=== PATIENT | female | born 1960 | race Caucasian/White ===

== ENCOUNTER → 2016-11-21 | Outpatient (CLI) | payer BC | LOC: COL.RAD 11:53 | DX: R20.0 Anesthesia of skin (principal); R42 Dizziness and giddiness | CPT/HCPCS: A9585 ==

== ENCOUNTER → 2017-11-27 | Outpatient (CLI) | payer BC | LOC: MC.RAD 10:43 | DX: Z12.31 Encounter for screening mammogram for malignant neoplasm of breast (principal) ==

== ENCOUNTER → 2018-11-19 | Outpatient (CLI) | payer BC | LOC: COL.RAD 09:04 | DX: C80.1 Malignant (primary) neoplasm, unspecified (principal); R91.8 Other nonspecific abnormal finding of lung field; N63.20 Unspecified lump in the left breast, unspecified quadrant | CPT/HCPCS: Q9967 ==

== ENCOUNTER 2018-12-18 02:47 | Emergency (ER) | payer BC ==
[~2018-12-18] VITALS: Ht 157.5 cm; Wt 72.7 kg
[2018-12-18 03:37] LABS: COLLECTION METHOD CLEAN CATCH
[2018-12-18 03:46] LABS: BASO % 0.5 % (0.0-2.0); EOS % 0.5 % (0-4.0); GRAN # 4.9 (1.4-6.5); GRAN % 77.7 % (42.2-75.2); HEMATOCRIT 39.8 % (37.0-47.0); HEMOGLOBIN 13.7 g/dl (12.5-16.0); LYMPH # 1.2 (1.2-3.4); LYMPH % 19.1 % (20.0-51.0); MEAN CELL VOLUME 87 fl (80.0-100.0); MEAN CORPUSCULAR HEMOGLOBIN 30 pg (27.0-31.0); MEAN CORPUSCULAR HGB CONC 34 g/dl (33.0-37.0); MEAN PLATELET VOLUME 9.2 fl (7.4-10.4); MONO # 0.1 (0.1-0.6); MONO % 1.9 % (1.7-9.3); PLATELET COUNT 314 K/mm3 (130-400); REDCELL DISTRIBUTION WIDTH-CV 13.7 % (11.5-14.5)
[2018-12-18 03:56] LABS: ALBUMIN 3.6 gm/dL (3.5-5.0); BILIRUBIN,TOTAL 0.3 mg/dL (0.0-1.0); C-REACTIVE PROTEIN 2.9 mg/dL (0.0-0.9); CALCIUM 8.5 mg/dL (8.4-10.2); CREATININE, serum 0.7 (0.52-1.25); POTASSIUM 3.9 mmol/L (3.4-5.0); TOTAL PROTEIN 6.2 gm/dL (6.4-8.2)
[2018-12-18 03:58] LABS: PH 8 (5-8); URINE APPEARANCE Clear; URINE BACTERIA None Seen /hpf; URINE BILIRUBIN Negative (NEGATIVE); URINE BLOOD 1+ (NEGATIVE); URINE COLOR Yellow; URINE GLUCOSE Negative (NEGATIVE); URINE KETONE Negative (NEGATIVE); URINE LEUKOCYTE ESTERASE 1+ (NEGATIVE); URINE NITRATE Negative (NEGATIVE); URINE PROTEIN(semi-quant) 1+ (NEGATIVE)
[2018-12-18] MEDS ORDERED: LEVAQUIN 750MG750 M1 PO (05:13)
[2018-12-18 05:35] VITALS: BP 110/64; PULSE 82; TEMP 99
== END 2018-12-18 05:35 | disposition home or self-care (01) ==
LOC: COL.ER 02:47
PROVIDERS: Emergency Medicine
DX: R50.9 Fever, unspecified (principal); I10 Essential (primary) hypertension; F17.210 Nicotine dependence, cigarettes, uncomplicated; C34.90 Malignant neoplasm of unspecified part of unspecified bronchus or lung; E78.00 Pure hypercholesterolemia, unspecified
CPT/HCPCS: J7030

== ENCOUNTER → 2019-01-26 | Outpatient (CLI) | payer BC ==
[~2019-01-26] MED LIST: LEVAQUIN 750MG750 M1 PO
== END ==
LOC: COL.RAD 11:30
DX: C34.32 Malignant neoplasm of lower lobe, left bronchus or lung (principal)

== ENCOUNTER → 2019-01-27 | Outpatient (CLI) | payer BC | LOC: COL.RAD 07:12 | DX: C34.32 Malignant neoplasm of lower lobe, left bronchus or lung (principal); E27.8 Other specified disorders of adrenal gland; N63.20 Unspecified lump in the left breast, unspecified quadrant; R00.0 Tachycardia, unspecified; Z95.818 Presence of other cardiac implants and grafts | CPT/HCPCS: Q9967 ==

== ENCOUNTER 2019-04-04 12:30 | Inpatient (IN) | payer BC ==
[~2019-04-04] VITALS: Ht 154.9 cm; Wt 62.2 kg
[2019-04-04 13:54] LABS: BASO % 0.3 % (0.0-2.0); EOS % 0.1 % (0-4.0); GRAN # 7.5 (1.4-6.5); GRAN % 78.7 % (42.2-75.2); HEMOGLOBIN 11.6 g/dl (12.5-16.0); LYMPH # 1.2 (1.2-3.4); LYMPH % 12.1 % (20.0-51.0); MEAN CELL VOLUME 86 fl (80.0-100.0); MEAN CORPUSCULAR HEMOGLOBIN 29 pg (27.0-31.0); MEAN CORPUSCULAR HGB CONC 34 g/dl (33.0-37.0); MEAN PLATELET VOLUME 8.7 fl (7.4-10.4); MONO # 0.8 (0.1-0.6); MONO % 8.1 % (1.7-9.3); PLATELET COUNT 439 K/mm3 (130-400); RED BLOOD COUNT 4.03 M/mm3 (4.10-5.30); REDCELL DISTRIBUTION WIDTH-CV 13.9 % (11.5-14.5)
[2019-04-04 13:55] LABS: HEMATOCRIT 34.5 % (37.0-47.0)
[2019-04-04 13:59] LABS: INR 1.3 (0.8-3.0); PROTHROMBIN TIME 15.1 SECONDS (9.7-12.8)
[2019-04-04 14:05] LABS: ALANINE AMINOTRANSFERASE < 6 U/L (9-52); ALBUMIN 3.6 gm/dL (3.5-5.0); ALKALINE PHOSPHATASE 167 U/L (50-136); ANION GAP 14 mmol/L (7-16); AST,SGOT 23 U/L (15-37); BILIRUBIN,TOTAL 0.5 mg/dL (0.0-1.0); BLOOD UREA NITROGEN 8 mg/dL (7-17); CALCIUM 9.6 mg/dL (8.4-10.2); CARBON DIOXIDE 29 mmol/L (22-30); CHLORIDE 92 mmol/L (98-107); CREATININE, serum 0.44 (0.52-1.25); GLUCOSE 105 mg/dL (74-106); LIPASE 77 U/L (23-300); SODIUM 134 mmol/L (137-145)
--- NOTE | 2019-04-04 14:21 | NUR ---
SW met with patient and her to provide information about hospice services to them. Patient has [employer] and would like to know who is in network and what is covered. SW faxed face sheet and [facility], [facility], [facility], and [facility]. Will follow up with patient once information obtained.
[2019-04-04 15:35] LABS: COLLECTION METHOD CLEAN CATCH
[2019-04-04 15:43] LABS: PH 8 (5-8); SQUAMOUS EPITHELIAL 0-2 /hpf; URINE APPEARANCE Clear; URINE BACTERIA None Seen /hpf; URINE BILIRUBIN Negative (NEGATIVE); URINE BLOOD Negative (NEGATIVE); URINE COLOR Yellow; URINE GLUCOSE Negative (NEGATIVE); URINE KETONE 1+ (NEGATIVE); URINE LEUKOCYTE ESTERASE 2+ (NEGATIVE); URINE NITRATE Negative (NEGATIVE); URINE PROTEIN(semi-quant) Negative (NEGATIVE); URINE RBC 0-2 /hpf; URINE UROBILINOGEN Negative (NEGATIVE)
[2019-04-04] MEDS ORDERED: ASPIRIN 81M81 MG/TA2 PO (17:58)
[2019-04-04] MEDS ORDERED: WELLBUTRIN 100100 MG PO (17:59)
[2019-04-04] MEDS ORDERED: HYZAAR 25 MG-101 TAB PO (18:00)
[2019-04-04] MEDS ORDERED: NEXIUM 40MG40 MG PO (18:00)
[2019-04-04] MEDS ORDERED: LEXAPRO20 MG PO (18:00)
[2019-04-04] MEDS ORDERED: CRESTOR 10MG10 MG PO (18:01)
[2019-04-04] MEDS ORDERED: VALIUM 2MG T2 MG/TAB PO (18:01)
[2019-04-04] MEDS ORDERED: FOLIC ACID800 MCG PO (18:02)
[2019-04-04] MEDS ORDERED: B COMPLEX & B121 TAB PO (18:03)
[2019-04-04] MEDS ORDERED: VITAMIN C500 MG PO (18:03)
[2019-04-04] MEDS ORDERED: VITAMIN D31000 IU PO (18:04)
[2019-04-04] MEDS ORDERED: COMPAZINE 110 MG/TAB PO (18:04)
[2019-04-04] MEDS ORDERED: FENTANYL 100MCG TD (18:06)
[2019-04-04] MEDS ORDERED: DILAUDID 4MG TAB4 MG PO (18:07)
[2019-04-04] MEDS ORDERED: NEURONTIN300 MG/CAP PO (18:07)
[2019-04-04] MEDS ORDERED: FENTANYL 25 MCG TD (18:07)
--- NOTE | 2019-04-04 18:30 | NUR ---
PATIENT IN ROOM AT THIS TIME.
--- NOTE | 2019-04-04 19:00 | NUR ---
Report given to RICKY Woo. Patient resting in bed. Call light within reach.
[2019-04-04 22:29] VITALS: BP 144/70; PULSE 110; TEMP 98.7
[2019-04-05] VITALS (7 sets, daily range): BP systolic 101–140; BP diastolic 55–71; PULSE 91–115; TEMP 98.2–99.2
--- NOTE | 2019-04-05 09:30 | NUR ---
Report received from RICKY Woo. Patient voices complaints of pain. Dilaudid syringe empty. Called pharmacy to bring up more. Saline rate decreased to 60 at this time. Patient is eating breakfast at bedside. Denies any other needs at this time. Call light within reach.
--- NOTE | 2019-04-05 09:55 | NUR ---
Initial visit; Patient thanked Teacher Visually Impaired for checking on her and states she is feeling better and appreciates Teacher Visually Impaired keeping her in Teacher Visually Impaired's prayers.
--- NOTE | 2019-04-05 12:38 | NUR ---
PATIENT REQUESTS TO TAKE A SHOWER. WAITING ON TO ASSIST WITH SHOWER. PAUSED FLUIDS AND PLATE FORMER UNTIL SHOWER FINISHED. PROVIDED ROXANOL PO. WILL REHOOK PLATE FORMER AND FLUIDS ONCE SHOWER FINISHED. PATIENT INDEPENDENT IN ROOM.
--- NOTE | 2019-04-05 13:36 | NUR ---
YANE attended clinical rounds to discuss discharge planning. Patient lives at home with her . Patient's PCP is Dr Ward and she obtains prescriptions from [facility] in [place]. Patient reports she has been independent with ADLs until recently and does not currently use any DME or home health. Patient reports she does have a DPOA-HC and Living Will. Patient reports she gave a copy to admissions. Patient was previously seen in the ED by YANE Kearns for hospice placment before admission. Patient reports her , Augustin ([phone]) is visting with [facility] today in [place] about using their hospice services at home when patient is discharged. YANE spoke with Augustin per patient request via phone about this. Augustin confirmed that he is working with hospice to provide hospice care at the time of discharge. YANE contacted and faxed referral to hospice.
--- NOTE | 2019-04-05 14:18 | NUR ---
Portacath was leaking at site around tegaderm. Assessed site and discussed with patient about leaving the site with redness and irritation. Discussed that if she would need a blood draw, they would have to poke her if we deaccessed. Patient decided to go ahead and deaccess the port so the site would not be so irritated. Port was hep locked, flushed, and removed. RT gave patient breathing treatment. Afterwards, patient was in a lot of pain. Administered Roxanol. Patient stated that the Roxanol was beginning to help decrease the pain almost right away. ELECTRONIC DEVICE MONITOR dilaudid vial was changed out and IV NS is infusing at 60 without issue into right AC site.
--- NOTE | 2019-04-05 19:00 | NUR ---
Shift assessment complete. Pt resting in bed, awake, a&o c occasional forgetfullness, cooperative c cares. Pt c/o continued generalized pain jeromy to hips, rated "9/10" at tis time as CLOTH FOLDER MACHINE syrince is empty. CLOTH FOLDER MACHINE has been empty, no more vials in omnicell, pharmacy contacted. Pt denies any other c/o. IV patent. Pt denies further needs. Call light in reach, will monitor.
--- NOTE | 2019-04-05 19:50 | NUR ---
Pt c/o severe generalized pain, rated "10/10". Pt tearful et shaking. Pharmacy contacted multiple times for TRANSFER MACHINE OPERATOR vail et vials fianlly delivered at this time. Attemped to control pain w additional PO medications. Pt denies any other c/o. Call light in reach, will monitor closely.
[2019-04-06 03:06] VITALS: BP 134/50; PULSE 102; TEMP 98.5
[2019-04-06 07:42] VITALS: BP 110/55; PULSE 107; TEMP 98.5
--- NOTE | 2019-04-06 08:01 | NUR ---
Pt assessment complete and charted. Pt sitting on EOB eating breakfast. A&O. Rating pain 8/10. States she is having pain in lower back and legs. "pain is a little worse this morning". Received oral ede PRN per NOV. RAC IV IVF @60 ml/hr no complications, wrapped with cierra wrap. Pt on COOK BOAT pump, room air and independent in room. Denies other needs at this time. Call light within reach.
--- NOTE | 2019-04-06 09:01 | NUR ---
Pt new dose STRUCTURAL STEEL EQUIPMENT ERECTOR dilaudid started. SBP <120, hydrochlorothiazide held per NOV instructions. Pt laying in bed. Et CO2 on. No other needs at this time.
--- NOTE | 2019-04-06 09:47 | NUR ---
Pt GEAR CUTTING MACHINE SET UP OPERATOR dilaudid syringe broken. Wasted 25ml in omnicell. New syringe brought up by pharmacy and started.
--- NOTE | 2019-04-06 10:20 | NUR ---
Follow-up visit; Patient thanks Automotive Service Writer for checking on her and inquiring about her needs. She states at this time she is "doing ok." Automotive Service Writer will continue to look in on her while she is here at [facility].
--- NOTE | 2019-04-06 10:34 | NUR ---
Called [facility] concerning usage of FX ARTIST for pain control at home. Due to high dosage they will not be able to manage the FX ARTIST at home for the patient. Notified Dr. Leigh of situation. coming to hospital and family meeting planned to discuss the next step in care for discharge planning.
[2019-04-06 11:46] VITALS: BP 105/56; PULSE 95; TEMP 98.3
--- NOTE | 2019-04-06 13:15 | NUR ---
New Dilaudid FIELD REPRESENTATIVES DIRECTOR dose started, confirmed w/ RICKY Velazquez. Et CO2 on patient. No complications. Pt rating pain at 4/10 at this time. Pt now on dilaudid PO scheduled as well. Denies other needs at this time. Waiting on hospitalist to have family meeting with .
--- NOTE | 2019-04-06 15:46 | NUR ---
YANE, ARDEN, doctor, and PA met with patient and to discuss patient returning home with hospice services. Dr Leigh voiced concern with patient returning home and her pain not being controlled. Dr Leigh also reported that patient will require 24/7 care from family, friends, or a hired aid in addition to the hospice staff. Patient and understand these concerns. Patient and are agreeable to YANE faxing a referral to the [facility] in the event patient is not able to return home. YANE contacted and faxed patient's information to [facility].
[2019-04-06 16:00] VITALS: BP 128/63; PULSE 109; TEMP 98.3
--- NOTE | 2019-04-06 17:07 | NUR ---
PURCHASE REQUEST EDITOR dilaudid DC'd. Oral pain control regimen started to see how pt tolerates. Pt sitting in chair watching tv. Rates pain 4/10 at this time. Informed pt to let this nurse know if she needed Caitlin PRN.
--- NOTE | 2019-04-06 19:03 | NUR ---
Pt toelrating PO oral pain control at this time. Rating pain at 6/10. Pt states that 6 is tolerable for her. Lowest she has rated pain is 4/10 today. Pt has been A&O, respirations WNL throughout the day. Report given to RICKY Burden.
[2019-04-06 19:11] VITALS: BP 121/56; PULSE 107; TEMP 98.7
--- NOTE | 2019-04-06 20:00 | NUR ---
pt resting in bed A+OX4 with family at bedside. reports pain 6/10 in back- prn and schedules meds given. reports some relief. lung sounds ex/in wheezing heard throughout. no soa at this time but reports some when walking. pt hand shaking- pt states "this happens when the pain is elevated". heat pack given. bowel sounds heard throughout abd. no other needs at this time. call light in reach.
[2019-04-07 00:25] VITALS: BP 121/59; PULSE 117; TEMP 98.2
[2019-04-07 03:13] VITALS: BP 117/59; PULSE 98; TEMP 98.3
--- NOTE | 2019-04-07 05:17 | NUR ---
pt had an uneventful night. reported pain 4-6/10 in back/hips- prn meds given q1-2H. pt had minimal sleep. no SOA. VSS. wheezing throughout lung [place]. reports SOA when walking. no needs [facility] time- call light in reach
--- NOTE | 2019-04-07 07:24 | NUR ---
report given to RICKY Correia. reports no needs at this time. pain neds given for 5/10 back pain.
[2019-04-07 08:09] VITALS: BP 140/64; PULSE 90; TEMP 98.1
--- NOTE | 2019-04-07 10:37 | NUR ---
Pt resting in roon eating breakfast upon entry, C/O pain 02/21, shift assessments complete, left Pt call light in reach, bed in lowest position.
[2019-04-07] MEDS ORDERED: IPRATROPIUM BROM3 M1 IH (10:42)
[2019-04-07] MEDS ORDERED: SENNA-S 50 MG-81 TAB PO (10:54)
[2019-04-07] MEDS ORDERED: MIRALAX PA17 GM/Dose PO (10:54)
[2019-04-07] MEDS ORDERED: MILK OF MA400 MG/52 PO (10:54)
[2019-04-07] MEDS ORDERED: ZOFRAN ODT4 MG PO (10:55)
[2019-04-07] MEDS ORDERED: COMPAZINE 110 MG/TAB PO (10:55)
[2019-04-07] MEDS ORDERED: DULCOLAX S10 MG/SUPP RC (10:58)
[2019-04-07] MEDS ORDERED: TRANSDERM-0.5 MG/21 TD (10:58)
[2019-04-07] MEDS ORDERED: SYSTANE BALANCE10 M1 OP (10:59)
[2019-04-07] MEDS ORDERED: OXYCONTIN 10MG10 MG PO (11:00)
[2019-04-07] MEDS ORDERED: DILAUDID8 M1 PO (11:00)
[2019-04-07] MEDS ORDERED: ROXANOL 20MG20 MG/ML PO (11:00)
[2019-04-07] MEDS ORDERED: LORAINT SL (11:00)
[2019-04-07] MEDS ORDERED: FENTANYL 100MCG TD (11:00)
[2019-04-07] MEDS ORDERED: OXYCONTIN 80MG80 MG PO (11:00)
--- NOTE | 2019-04-07 11:17 | NUR ---
Patient will discharge home today with [facility] in [place]. SW will fax discharge orders to [facility] once they're finalized.
[2019-04-07 11:43] VITALS: BP 100/58; PULSE 91; TEMP 98
--- NOTE | 2019-04-07 15:01 | NUR ---
Pt discharged to home, escorted to entrance, left with spouse in private auto.
== END 2019-04-07 14:55 | disposition hospice, home (50) | DRG 181 ==
LOC: COL.ER 12:30 → MEDICAL 16:52
PROVIDERS: Emergency Medicine; ADMIT Internal Medicine
DX: C34.90 Malignant neoplasm of unspecified part of unspecified bronchus or lung (principal); C79.89 Secondary malignant neoplasm of other specified sites; G89.3 Neoplasm related pain (acute) (chronic); R53.81 Other malaise; F17.210 Nicotine dependence, cigarettes, uncomplicated
CPT/HCPCS: 99223-AI; 99233-AI; 99239; J1170; J1650; J2550; J7030

== ENCOUNTER 2019-04-18 02:01 | Emergency (ER) | payer BC ==
[~2019-04-18] VITALS: Ht 157.5 cm; Wt 56.8 kg
[~2019-04-18 02:01] MED LIST changes: +ASPIRIN 81M81 MG/TA2 PO; +B COMPLEX & B121 TAB PO; +COMPAZINE 110 MG/TAB PO; +CRESTOR 10MG10 MG PO; +DILAUDID 4MG TAB4 MG PO; +DILAUDID8 M1 PO; +DULCOLAX S10 MG/SUPP RC; +FENTANYL 100MCG TD; +FENTANYL 25 MCG TD; +FOLIC ACID800 MCG PO; +HYZAAR 25 MG-101 TAB PO; +IPRATROPIUM BROM3 M1 IH; +LEXAPRO20 MG PO; +LORAINT SL; +MILK OF MA400 MG/52 PO; +MIRALAX PA17 GM/Dose PO; +NEURONTIN300 MG/CAP PO; +NEXIUM 40MG40 MG PO; +OXYCONTIN 10MG10 MG PO; +OXYCONTIN 80MG80 MG PO; +ROXANOL 20MG20 MG/ML PO; +SENNA-S 50 MG-81 TAB PO; +SYSTANE BALANCE10 M1 OP; +TRANSDERM-0.5 MG/21 TD; +VALIUM 2MG T2 MG/TAB PO; +VITAMIN C500 MG PO; +VITAMIN D31000 IU PO; +WELLBUTRIN 100100 MG PO; +ZOFRAN ODT4 MG PO
[2019-04-18 02:08] VITALS: BP 167/84; TEMP 97.7
[2019-04-18 02:34] LABS: BASO % 0.3 % (0.0-2.0); EOS % 0.2 % (0-4.0); GRAN # 9.8 (1.4-6.5); GRAN % 76.4 % (42.2-75.2); HEMOGLOBIN 12.5 g/dl (12.5-16.0); LYMPH % 15.4 % (20.0-51.0); MEAN CELL VOLUME 86 fl (80.0-100.0); MEAN CORPUSCULAR HEMOGLOBIN 28 pg (27.0-31.0); MEAN CORPUSCULAR HGB CONC 33 g/dl (33.0-37.0); MEAN PLATELET VOLUME 8.4 fl (7.4-10.4); MONO # 0.8 (0.1-0.6); MONO % 6.6 % (1.7-9.3); PLATELET COUNT 587 K/mm3 (130-400); REDCELL DISTRIBUTION WIDTH-CV 14.5 % (11.5-14.5)
[2019-04-18 02:42] LABS: ALANINE AMINOTRANSFERASE < 6 U/L (9-52); ALBUMIN 4.1 gm/dL (3.5-5.0); ALKALINE PHOSPHATASE 216 U/L (50-136); ANION GAP 12 mmol/L (7-16); AST,SGOT 25 U/L (15-37); BILIRUBIN,TOTAL 0.5 mg/dL (0.0-1.0); BLOOD UREA NITROGEN 11 mg/dL (7-17); CALCIUM 9.7 mg/dL (8.4-10.2); CARBON DIOXIDE 29 mmol/L (22-30); CHLORIDE 92 mmol/L (98-107); CREATININE, serum 0.47 (0.52-1.25); GLUCOSE 101 mg/dL (74-106); POTASSIUM 3.9 mmol/L (3.4-5.0); SODIUM 133 mmol/L (137-145); TOTAL PROTEIN 8.2 gm/dL (6.4-8.2)
[2019-04-18 04:46] VITALS: PULSE 103
== END 2019-04-18 04:45 | disposition short-term general hospital (02) ==
LOC: COL.ER 02:01
PROVIDERS: Emergency Medicine
DX: C34.90 Malignant neoplasm of unspecified part of unspecified bronchus or lung (principal); C79.51 Secondary malignant neoplasm of bone; G89.29 Other chronic pain; M54.5 Low back pain; M79.605 Pain in left leg; M79.604 Pain in right leg; Z87.891 Personal history of nicotine dependence; Z98.890 Other specified postprocedural states
CPT/HCPCS: J1170; J1630; J2060; J2405; J3010; J7030